=== PATIENT | female | born 1975 | race Caucasian/White ===

== ENCOUNTER 2016-05-27 05:08 | Inpatient (IN) | payer OTHER ==
[~2016-05-27 05:08] MED LIST: CELEXA20 M2 PO; FIBER CHOICE PO; MULTIVITAMINS1 EAC6 PO; ZYRTEC10 M7 PO
[2016-05-27 07:24] LABS: ANION GAP 13 mmol/L (0-20); BLOOD UREA NITROGEN 9 mg/dl (6-24); CALCIUM 8.3 mg/dl (8.5-10.5); CARBON DIOXIDE-VENOUS 25 mmol/L (22-32); CHLORIDE 109 mmol/l (96-110); CREATININE 0.63 mg/dl (0.50-1.10); GLUCOSE 93 mg/dL (70-110); POTASSIUM 3.7 mmol/L (3.7-5.1); SODIUM 143 mmol/L (135-145); eGFR VALUE FOR BLACK >90 mL/Min
[2016-05-28 06:29] LABS: ANION GAP 12 mmol/L (0-20); BLOOD UREA NITROGEN 7 mg/dl (6-24); CALCIUM 8.2 mg/dl (8.5-10.5); CARBON DIOXIDE-VENOUS 22 mmol/L (22-32); CHLORIDE 111 mmol/l (96-110); GLUCOSE 99 mg/dL (70-110); POTASSIUM 4.5 mmol/L (3.7-5.1); SODIUM 140 mmol/L (135-145); eGFR VALUE FOR BLACK >90 mL/Min
[2016-05-29] MEDS ORDERED: ROBAXIN-750750 M1 PO (10:32)
[2016-05-29] MEDS ORDERED: NORCO 5-325 TA1 EACH PO (10:33)
[2016-05-29] MEDS ORDERED: SENNA PLUS TAB1 EAC1 PO (10:36)
== END 2016-05-29 11:20 | DRG 460 ==
LOC: SHSB 05:08 → ORE 07:25 → PACU 10:50 → 5EB 12:55
PROVIDERS: Anesthesiology; ADMIT Neurological Surgery
PROC: 0QB00ZZ Excision of Lumbar Vertebra, Open Approach (ICD-10-PCS; principal; 2016-05-27)
PROC: 0SG10AJ Fusion of 2 or more Lumbar Vertebral Joints with Interbody Fusion Device, Posterior Approach, Anterior Column, Open Approach (ICD-10-PCS; 2016-05-27)
PROC: 0S9 Lower Joints, Drainage (ICD-10-PCS; 2016-05-27)
DX: M48.06 Spinal stenosis, lumbar region (principal); F41.9 Anxiety disorder, unspecified; M48.16 Ankylosing hyperostosis [Forestier], lumbar region; M54.16 Radiculopathy, lumbar region
CPT/HCPCS: C1713; J1170; J2250; J2800; J3010; J3370; J7030; J7040